=== PATIENT | male | born 1945 | race Caucasian/White ===

== ENCOUNTER → 2017-01-08 | Outpatient (CLI) | payer MEDICARE, OTHER ==
[~2017-01-08] MED LIST: AMLODIPINE BESY10 MG PO; ASPIRIN E.C. 8181 MG PO; CALCIUM 600 +1 EAC2 PO; CEFUROXIME AXE500 MG PO; LISINOPRIL AND1 TA1 PO; PRAVASTATIN SOD40 MG PO; PROSCAR PO; VENLAFAXINE37.5 MG PO
[2017-01-08 13:54] VITALS: BP 139/92
[2017-01-08 14:55] VITALS: BP 116/80
== END ==
LOC: LAB 09:15
DX: I10 Essential (primary) hypertension (principal); R63.4 Abnormal weight loss; R63.0 Anorexia; R41.3 Other amnesia

== ENCOUNTER → 2017-02-04 | Outpatient (CLI) | payer MEDICARE, OTHER ==
[2017-01-08 14:55] VITALS: BP 116/80
== END ==
LOC: LAB 10:14
DX: N17.9 Acute kidney failure, unspecified (principal)

== ENCOUNTER 2017-02-10 20:33 | Emergency (ER) | payer MEDICARE, OTHER ==
[~2017-02-10 20:33] MED LIST changes: -CALCIUM 600 +1 EAC2 PO; -CEFUROXIME AXE500 MG PO
[2017-02-10] MEDS ORDERED: CALCIUM 600 +1 EAC2 PO (20:42)
[2017-02-10] MEDS ORDERED: CEFUROXIME AXE500 MG PO (23:45)
[2017-02-11 00:37] VITALS: BP 140/84
== END 2017-02-11 00:18 | disposition home or self-care (01) ==
LOC: ED 20:33
DX: N39.0 Urinary tract infection, site not specified (principal); N18.9 Chronic kidney disease, unspecified; N13.9 Obstructive and reflux uropathy, unspecified; Z98.890 Other specified postprocedural states
CPT/HCPCS: A4344; A4353; J0696; J7030

== ENCOUNTER → 2017-02-14 | Outpatient (CLI) | payer MEDICARE, OTHER ==
[2017-02-11 00:37] VITALS: BP 140/84
[~2017-02-14] MED LIST changes: +CALCIUM 600 +1 EAC2 PO; +CEFUROXIME AXE500 MG PO
== END ==
LOC: RAD 09:02
DX: A41.52 Sepsis due to Pseudomonas (principal); N10 Acute pyelonephritis; Z87.448 Personal history of other diseases of urinary system

== ENCOUNTER → 2017-02-18 | Outpatient (CLI) | payer MEDICARE, OTHER ==
[2017-02-11 00:37] VITALS: BP 140/84
== END ==
LOC: LAB 09:52
DX: A41.52 Sepsis due to Pseudomonas (principal); Z87.448 Personal history of other diseases of urinary system; N10 Acute pyelonephritis

== ENCOUNTER → 2017-02-25 | Outpatient (CLI) | payer MEDICARE, OTHER ==
[2017-02-11 00:37] VITALS: BP 140/84
== END ==
LOC: LAB 08:20
DX: N17.9 Acute kidney failure, unspecified (principal)

== ENCOUNTER → 2017-03-05 | Outpatient (CLI) | payer MEDICARE, OTHER ==
[2017-02-11 00:37] VITALS: BP 140/84
== END ==
LOC: LAB 12:22
DX: N17.9 Acute kidney failure, unspecified (principal)

== ENCOUNTER → 2017-03-11 | Outpatient (CLI) | payer MEDICARE, OTHER ==
[2017-02-11 00:37] VITALS: BP 140/84
== END ==
LOC: LAB 07:46
DX: N17.9 Acute kidney failure, unspecified (principal)

== ENCOUNTER → 2017-03-19 | Outpatient (CLI) | payer MEDICARE, OTHER | LOC: LAB 07:03 | DX: N17.9 Acute kidney failure, unspecified (principal) ==

== ENCOUNTER → 2017-07-08 | Outpatient (CLI) | payer MEDICARE, OTHER | LOC: LAB 07:46 | DX: Z87.448 Personal history of other diseases of urinary system (principal); I10 Essential (primary) hypertension ==

== ENCOUNTER → 2017-08-20 | Outpatient (CLI) | payer MEDICARE, OTHER ==
[2017-08-20 10:44] LABS: BUN/CREATININE RATIO 21.3 (6.0-26.0); CALCIUM 10.1 mg/dL (8.4-10.2); POTASSIUM 3.9 mmol/L (3.6-5.0)
== END ==
LOC: RAD 10:01
PROVIDERS: Urology
DX: N40.1 Benign prostatic hyperplasia with lower urinary tract symptoms (principal)

== ENCOUNTER → 2017-09-26 | Outpatient (CLI) | payer MEDICARE, OTHER ==
[2017-09-26 12:13] LABS: BUN/CREATININE RATIO 23.4 (6.0-26.0); CALCIUM 10.1 mg/dL (8.4-10.2); POTASSIUM 4.4 mmol/L (3.6-5.0)
== END ==
LOC: LAB 11:03
PROVIDERS: Urology
DX: R33.8 Other retention of urine (principal)

== ENCOUNTER → 2017-11-21 | Outpatient (CLI) | payer MEDICARE, OTHER ==
[2017-11-21 14:49] LABS: BUN/CREATININE RATIO 21.9 (6.0-26.0); CALCIUM 9.7 mg/dL (8.4-10.2)
== END ==
LOC: RAD 11-04 09:00 → LAB 08:37
PROVIDERS: Urology
DX: N40.1 Benign prostatic hyperplasia with lower urinary tract symptoms (principal)

== ENCOUNTER → 2017-12-18 | Outpatient (CLI) | payer MEDICARE, OTHER ==
[2017-12-18 10:30] LABS: CALCIUM 9.6 mg/dL (8.4-10.2); POTASSIUM 3.7 mmol/L (3.6-5.0)
== END ==
LOC: LAB 10:07
PROVIDERS: Family Medicine
DX: I10 Essential (primary) hypertension (principal)

== ENCOUNTER → 2018-05-16 | Outpatient (CLI) | payer MEDICARE, OTHER ==
[2018-05-16 13:20] LABS: BUN/CREATININE RATIO 22.9 (6.0-26.0); CALCIUM 9.7 mg/dL (8.4-10.2); POTASSIUM 4.4 mmol/L (3.6-5.0)
== END ==
LOC: LAB 12:24
PROVIDERS: Urology
DX: N40.1 Benign prostatic hyperplasia with lower urinary tract symptoms (principal); R31.0 Gross hematuria

== ENCOUNTER → 2018-07-28 | Outpatient (CLI) | payer MEDICARE, OTHER ==
[2018-07-28 15:06] LABS: HEMATOCRIT 41.7 % (42.0-52.0); HEMOGLOBIN 13.7 g/dL (13.5-18.0); MEAN CELL VOLUME 92 fl (78-100); MEAN CORPUSCULAR HEMOGLOBIN 30 pg (27-31); MEAN CORPUSCULAR HGB CONC 33 g/dL (33-37); MEAN PLATELET VOLUME 9.3 fl (7.4-10.4); PLATELET COUNT 243 K/mm3 (130-400); RED BLOOD COUNT 4.52 M/mm3 (4.20-5.60); RED CELL DISTRIBUTION WIDTH 13.5 % (11.5-14.5); WHITE BLOOD COUNT 8.1 K/mm3 (4.8-10.8)
[2018-07-28 16:10] LABS: CALCIUM 9.4 mg/dL (8.4-10.2); POTASSIUM 3.7 mmol/L (3.6-5.0)
[2018-07-28 17:29] LABS: LYMPHOCYTE 16 % (20-51); MONOCYTE 9 % (3-10); NEUTROPHILS 72 % (42-75)
[2018-07-28 17:30] LABS: URINE APPEARANCE CLOUDY; URINE COLOR YELLOW
[2018-07-28 17:31] LABS: URINE BILIRUBIN NEGATIVE (NEGATIVE); URINE BLOOD TRACE (NEGATIVE); URINE GLUCOSE NEGATIVE (NEGATIVE); URINE KETONE NEGATIVE (NEGATIVE); URINE LEUKOCYTE ESTERASE 2+ (NEGATIVE); URINE NITRATE NEGATIVE (NEGATIVE); URINE PROTEIN(semi-quant) TRACE mg/dL (NEGATIVE); URINE UROBILINOGEN NORMAL (NORMAL); URINE WBC >50 /hpf (0-3)
== END ==
LOC: LAB 14:41
PROVIDERS: Family Medicine
DX: R50.9 Fever, unspecified (principal); N39.0 Urinary tract infection, site not specified

== ENCOUNTER → 2018-12-29 | Outpatient (CLI) | payer MEDICARE, OTHER ==
[2018-12-29 10:14] LABS: CALCIUM 9.3 mg/dL (8.4-10.2); POTASSIUM 3.9 mmol/L (3.6-5.0)
== END ==
LOC: LAB 09:25
PROVIDERS: Family Medicine
DX: N18.3 Chronic kidney disease, stage 3 (moderate) (principal); I10 Essential (primary) hypertension

== ENCOUNTER → 2019-12-14 | Outpatient (CLI) | payer MEDICARE, OTHER ==
[2019-12-14 13:11] LABS: URINE COLOR YELLOW
[2019-12-14 13:12] LABS: URINE APPEARANCE CLOUDY; URINE BILIRUBIN NEGATIVE (NEGATIVE); URINE BLOOD TRACE (NEGATIVE); URINE GLUCOSE NEGATIVE (NEGATIVE); URINE KETONE NEGATIVE (NEGATIVE); URINE LEUKOCYTE ESTERASE 2+ (NEGATIVE); URINE NITRATE NEGATIVE (NEGATIVE); URINE PROTEIN(semi-quant) TRACE mg/dL (NEGATIVE); URINE UROBILINOGEN NORMAL (NORMAL); URINE WBC >50 /hpf (0-3)
[2019-12-14 14:02] LABS: POTASSIUM 3.8 mmol/L (3.5-5.1)
[2019-12-14 14:03] LABS: ALBUMIN 4.2 g/dL (3.4-4.8)
[2019-12-14 14:04] LABS: CALCIUM 9.2 mg/dL (8.3-10.5)
[2019-12-14 14:05] LABS: TOTAL PROTEIN 7.3 g/dL (6.2-8.1)
[2019-12-14 14:07] LABS: TOTAL BILIRUBIN 0.6 mg/dL (0.2-1.2)
== END ==
LOC: LAB 07:54
PROVIDERS: Family Medicine
DX: I12.9 Hypertensive chronic kidney disease with stage 1 through stage 4 chronic kidney disease, or unspecified chronic kidney disease (principal); N18.3 Chronic kidney disease, stage 3 (moderate); N40.0 Benign prostatic hyperplasia without lower urinary tract symptoms; E78.5 Hyperlipidemia, unspecified; R41.3 Other amnesia

== ENCOUNTER → 2019-12-30 | Outpatient (CLI) | payer MEDICARE, OTHER ==
[2019-12-30 10:29] LABS: URINE APPEARANCE CLEAR; URINE BILIRUBIN NEGATIVE (NEGATIVE); URINE BLOOD NEGATIVE (NEGATIVE); URINE COLOR YELLOW; URINE GLUCOSE NEGATIVE (NEGATIVE); URINE KETONE NEGATIVE (NEGATIVE); URINE LEUKOCYTE ESTERASE NEGATIVE (NEGATIVE); URINE NITRATE NEGATIVE (NEGATIVE); URINE PROTEIN(semi-quant) NEGATIVE (NEGATIVE); URINE UROBILINOGEN NORMAL (NORMAL); URINE WBC 0-1 /hpf (0-3)
[2019-12-30 10:33] LABS: POTASSIUM 4.3 mmol/L (3.5-5.1)
[2019-12-30 10:34] LABS: CALCIUM 10.3 mg/dL (8.3-10.5)
== END ==
LOC: LAB 09:51
PROVIDERS: Family Medicine
DX: Z00.00 Encounter for general adult medical examination without abnormal findings (principal); N18.3 Chronic kidney disease, stage 3 (moderate); I11.0 Hypertensive heart disease with heart failure; N40.0 Benign prostatic hyperplasia without lower urinary tract symptoms; E78.2 Mixed hyperlipidemia; R82.90 Unspecified abnormal findings in urine; Z86.59 Personal history of other mental and behavioral disorders

== ENCOUNTER → 2020-05-06 | Outpatient (CLI) | payer MEDICARE, OTHER | LOC: CARDLAB 01-15 07:32 → CARDREHAB 08:42 → CARDLAB 10:52 | DX: Z13.6 Encounter for screening for cardiovascular disorders (principal); I10 Essential (primary) hypertension; E78.5 Hyperlipidemia, unspecified | CPT/HCPCS: A9500 ==

== ENCOUNTER → 2020-12-07 | Outpatient (CLI) | payer MEDICARE, OTHER ==
[2020-12-07 09:28] LABS: POTASSIUM 3.7 mmol/L (3.5-5.1)
[2020-12-07 09:29] LABS: CALCIUM 9.6 mg/dL (8.3-10.5)
== END ==
LOC: LAB 08:31
PROVIDERS: Internal Medicine Nephrology
DX: N28.1 Cyst of kidney, acquired (principal)

== ENCOUNTER → 2021-01-04 | Outpatient (CLI) | payer MEDICARE, OTHER ==
[2021-01-04 08:59] LABS: POTASSIUM 3.9 mmol/L (3.5-5.1)
[2021-01-04 09:01] LABS: CALCIUM 9.2 mg/dL (8.3-10.5)
[2021-01-04 09:02] LABS: TOTAL PROTEIN 6.8 g/dL (6.2-8.1)
[2021-01-04 09:04] LABS: TOTAL BILIRUBIN 0.9 mg/dL (0.2-1.2)
[2021-01-04 09:05] LABS: URINE APPEARANCE CLEAR; URINE BILIRUBIN NEGATIVE (NEGATIVE); URINE BLOOD NEGATIVE (NEGATIVE); URINE COLOR YELLOW; URINE GLUCOSE NEGATIVE (NEGATIVE); URINE KETONE NEGATIVE (NEGATIVE); URINE LEUKOCYTE ESTERASE NEGATIVE (NEGATIVE); URINE MUCUS PRESENT (NOT PRESENT); URINE NITRATE NEGATIVE (NEGATIVE); URINE PROTEIN(semi-quant) NEGATIVE (NEGATIVE); URINE UROBILINOGEN NORMAL (NORMAL); URINE WBC 0-1 /hpf (0-3)
== END ==
LOC: LAB 08:37
PROVIDERS: Family Medicine
DX: N18.30 Chronic kidney disease, stage 3 unspecified (principal); E78.2 Mixed hyperlipidemia; N40.0 Benign prostatic hyperplasia without lower urinary tract symptoms

== ENCOUNTER → 2021-04-03 | Outpatient (CLI) | payer MEDICARE, OTHER ==
[2021-04-03 07:45] LABS: POTASSIUM 3.5 mmol/L (3.5-5.1)
[2021-04-03 07:46] LABS: CALCIUM 9.6 mg/dL (8.3-10.5)
== END ==
LOC: LAB 07:19
PROVIDERS: Internal Medicine Nephrology
DX: I12.9 Hypertensive chronic kidney disease with stage 1 through stage 4 chronic kidney disease, or unspecified chronic kidney disease (principal); N18.32 Chronic kidney disease, stage 3b

== ENCOUNTER → 2021-06-12 | Day surgery (SDC) | payer MEDICARE, OTHER | END | disposition home or self-care (01) | LOC: MSO 07:02 | DX: D12.4 Benign neoplasm of descending colon (principal); K57.30 Diverticulosis of large intestine without perforation or abscess without bleeding; I12.9 Hypertensive chronic kidney disease with stage 1 through stage 4 chronic kidney disease, or unspecified chronic kidney disease; N18.2 Chronic kidney disease, stage 2 (mild); F41.9 Anxiety disorder, unspecified; F03.90 Unspecified dementia, unspecified severity, without behavioral disturbance, psychotic disturbance, mood disturbance, and anxiety; Z79.82 Long term (current) use of aspirin; Z79.899 Other long term (current) drug therapy | CPT/HCPCS: 00811; J2704; J7120 ==